=== PATIENT | female | born 1960 | race Caucasian/White ===

== ENCOUNTER 2016-10-13 15:19 | Emergency (ER) | payer OTHER ==
[~2016-10-13] VITALS: Ht 154.9 cm; Wt 108.9 kg
[~2016-10-13 15:19] MED LIST: ALENDRONATE SOD70 M1 PO; AMLODIPINE BES2.5 MG PO; AMOXICILLIN500 MG PO; ARTHROTEC 75 751 ECT PO; ASPIRIN81 M1 PO; ATARAX25 MG PO; BENICAR40 MG PO; CILOXAN 5 ML5 M1 OP; CRESTOR10 MG PO; CYMBALTA30 MG PO; DEXILANT60 M1 PO; DIOVAN320 MG PO; ELIMITE 5%60 GM PO; FLEXERIL5 MG PO; HYDROCODONE BIT1 T11 PO; JANUVIA; JANUVIA100 MG PO; LOSARTAN POTAS100 MG PO; MEDROL DOSEPAK4 MG PO; METFORMIN1000 MG PO; MOBIC15 MG PO; MOTRIN800 MG PO; NEURONTIN300 MG PO; NORCO 325 MG-51 TAB PO; OSCAL/D,OYSTER250 MG PO; PANTOPRAZOLE40 MG PO; PERCOCET 325 MG1 TA2 PO; PERCOCET 325 MG1 TA7 PO; PROTONIX40 MG PO; ROBAXIN500 MG PO; ROBAXIN750 MG PO; VICODIN 500 MG-1 TAB PO; VITAMIN D3400 IU PO; ZANAFLEX2 M1 PO; ZITHROMAX250 MG PO
[2016-10-13 15:43] VITALS: BP 148/89
[2016-10-13] MEDS ORDERED: VITAMIN D50000 I3 PO (15:44)
[2016-10-13] MEDS ORDERED: ANORO ELLIPTA1 POW IH (15:47)
[2016-10-13] MEDS ORDERED: NAPROXEN500 MG PO (15:47)
[2016-10-13] MEDS ORDERED: NOVAPLUS V0.09 MG/Ac IH (15:47)
[2016-10-13] MEDS ORDERED: METFOMIN HYDRO850 MG PO (15:48)
[2016-10-13] MEDS ORDERED: PREDNISONE50 MG PO (17:49)
[2016-10-13] MEDS ORDERED: Orphenadrine C100 MG PO (17:49)
== END 2016-10-13 18:03 | disposition home or self-care (01) ==
LOC: ED 15:19
DX: M54.2 Cervicalgia (principal); M54.5 Low back pain; Z88.6 Allergy status to analgesic agent; Z88.8 Allergy status to other drugs, medicaments and biological substances; Z79.82 Long term (current) use of aspirin; Z79.899 Other long term (current) drug therapy

== ENCOUNTER 2017-02-28 17:01 | Emergency (ER) | payer OTHER ==
[~2017-02-28] VITALS: Ht 154.9 cm; Wt 106.1 kg
[~2017-02-28 17:01] MED LIST changes: +ANORO ELLIPTA1 POW IH; +METFOMIN HYDRO850 MG PO; +NAPROXEN500 MG PO; +NOVAPLUS V0.09 MG/Ac IH; +Orphenadrine C100 MG PO; +PREDNISONE50 MG PO; +VITAMIN D50000 I3 PO
[2017-02-28 17:19] VITALS: BP 145/90
[2017-02-28] MEDS ORDERED: HYDROCODONE BIT1 T11 PO (18:48)
== END 2017-02-28 18:55 | disposition home or self-care (01) ==
LOC: ED 17:01
DX: S46.912A Strain of unspecified muscle, fascia and tendon at shoulder and upper arm level, left arm, initial encounter (principal); Z98.51 Tubal ligation status; Z79.899 Other long term (current) drug therapy; Z79.82 Long term (current) use of aspirin; Z88.8 Allergy status to other drugs, medicaments and biological substances; Z88.6 Allergy status to analgesic agent; X58.XXXA Exposure to other specified factors, initial encounter; Y93.89 Activity, other specified; Y92.89 Other specified places as the place of occurrence of the external cause; Y99.9 Unspecified external cause status

== ENCOUNTER → 2017-03-15 | Outpatient (CLI) | payer OTHER ==
[2017-03-15 11:02] LABS: BASO % 0.4 % (0.0-1.0); EOS # 0.2 10*3/uL (0.0-0.4); EOS % 2.1 % (1.0-4.0); HEMATOCRIT 35.3 % (37.0-47.0); HEMOGLOBIN 11.5 g/dl (12.0-16.0); LYMPH # 2.8 10*3/uL (1.3-4.4); LYMPH % 35.2 % (27.0-41.0); MEAN CELL VOLUME 83.1 fl (81.0-99.0); MEAN CORPUSCULAR HGB 27.1 pg (27.0-31.0); MEAN CORPUSCULAR HGB CONC 32.6 g/dl (33.0-37.0); MEAN PLATELET VOLUME 11.5 fl (9.6-12.3); MONO # 0.6 10*3/uL (0.1-1.0); MONO % 7.7 % (3.0-9.0); NEUT # 4.4 10*3/uL (2.3-7.9); NEUT % 54.5 % (47.0-73.0); PLATELET COUNT AUTOMATED 341 10*3/uL (130-400); RED BLOOD COUNT 4.25 10*6/uL (4.10-5.10)
[2017-03-15 11:33] LABS: ALBUMIN 3.6 gm/dl (3.1-4.5); BILIRUBIN, TOTAL 0.4 mg/dl (0.2-1.0); POTASSIUM 3.9 mmol/L (3.5-5.1); TOTAL PROTEIN 7.6 gm/dL (6.4-8.2)
[2017-03-15 11:41] LABS: THYROID STIM HORMONE (HS) 2.93 uIU/ml (0.358-4.75)
== END | disposition home or self-care (01) ==
LOC: LAB 10:33
PROVIDERS: Internal Medicine
DX: E11.42 Type 2 diabetes mellitus with diabetic polyneuropathy (principal); E78.2 Mixed hyperlipidemia; E55.9 Vitamin D deficiency, unspecified

== ENCOUNTER → 2017-03-30 | Outpatient (CLI) | payer OTHER | END | disposition home or self-care (01) | LOC: MAMMO 00:26 | DX: Z12.31 Encounter for screening mammogram for malignant neoplasm of breast (principal); M81.8 Other osteoporosis without current pathological fracture; Z78.0 Asymptomatic menopausal state; R29.890 Loss of height; E83.51 Hypocalcemia ==

== ENCOUNTER → 2017-04-18 | Outpatient (CLI) | payer OTHER | END | disposition home or self-care (01) | LOC: RAD 11:39 | DX: M47.817 Spondylosis without myelopathy or radiculopathy, lumbosacral region (principal) ==

== ENCOUNTER → 2017-08-16 | Outpatient (CLI) | payer OTHER | END | disposition home or self-care (01) | LOC: RAD 01:58 → ORTHO 01:58 | DX: M77.31 Calcaneal spur, right foot (principal) ==

== ENCOUNTER → 2017-11-20 | Outpatient (CLI) | payer OTHER ==
[2017-11-20 11:12] LABS: BASO % 0.3 % (0.0-1.0); EOS # 0.2 10*3/uL (0.0-0.4); EOS % 2.2 % (1.0-4.0); HEMATOCRIT 36.7 % (37.0-47.0); LYMPH # 2.4 10*3/uL (1.3-4.4); LYMPH % 23.2 % (27.0-41.0); MEAN CELL VOLUME 81.7 fl (81.0-99.0); MEAN CORPUSCULAR HGB 26.7 pg (27.0-31.0); MEAN CORPUSCULAR HGB CONC 32.7 g/dl (33.0-37.0); MEAN PLATELET VOLUME 11.2 fl (9.6-12.3); MONO # 0.7 10*3/uL (0.1-1.0); MONO % 6.7 % (3.0-9.0); NEUT # 6.9 10*3/uL (2.3-7.9); NEUT % 67.3 % (47.0-73.0); PLATELET COUNT AUTOMATED 353 10*3/uL (130-400); RED BLOOD COUNT 4.49 10*6/uL (4.10-5.10); RED CELL DISTRI WIDTH 14.6 % (0-14.5); WHITE BLOOD COUNT 10.2 10*3/uL (4.8-10.8)
[2017-11-20 11:47] LABS: ALBUMIN 3.4 gm/dl (3.1-4.5); CREATININE 1.41 mg/dL (0.55-1.02); POTASSIUM 3.7 mmol/L (3.5-5.1)
[2017-11-20 11:56] LABS: THYROID STIM HORMONE (HS) 2.83 uIU/ml (0.358-4.75); TOTAL PROTEIN 7.8 gm/dL (6.4-8.2)
== END | disposition home or self-care (01) ==
LOC: LAB 10:37
PROVIDERS: Internal Medicine
DX: E11.42 Type 2 diabetes mellitus with diabetic polyneuropathy (principal); E55.9 Vitamin D deficiency, unspecified; E78.2 Mixed hyperlipidemia

== ENCOUNTER → 2018-01-16 | Outpatient (CLI) | payer OTHER | END | disposition home or self-care (01) | LOC: RAD 12:09 | DX: M25.512 Pain in left shoulder (principal) ==

== ENCOUNTER → 2018-02-15 | Outpatient (CLI) | payer OTHER | END | disposition home or self-care (01) | LOC: ORTHO 02:43 | DX: M50.323 Other cervical disc degeneration at C6-C7 level (principal); M47.812 Spondylosis without myelopathy or radiculopathy, cervical region ==

== ENCOUNTER → 2018-03-05 | Outpatient (CLI) | payer OTHER | END | disposition home or self-care (01) | LOC: MRI 10:00 | DX: M50.223 Other cervical disc displacement at C6-C7 level (principal); M47.892 Other spondylosis, cervical region ==

== ENCOUNTER 2018-06-20 11:14 | Emergency (ER) | payer OTHER ==
[~2018-06-20] VITALS: Ht 152.4 cm; Wt 111.1 kg
[2018-06-20 11:17] VITALS: BP 132/85
== END 2018-06-20 14:05 ==
LOC: ED 11:14
DX: S76.912A Strain of unspecified muscles, fascia and tendons at thigh level, left thigh, initial encounter (principal); I80.3 Phlebitis and thrombophlebitis of lower extremities, unspecified; Z88.6 Allergy status to analgesic agent; Z88.8 Allergy status to other drugs, medicaments and biological substances; Z79.82 Long term (current) use of aspirin; Z79.899 Other long term (current) drug therapy; Z79.84 Long term (current) use of oral hypoglycemic drugs; Z98.51 Tubal ligation status; X58.XXXA Exposure to other specified factors, initial encounter; Y93.89 Activity, other specified; Y92.89 Other specified places as the place of occurrence of the external cause; Y99.8 Other external cause status

== ENCOUNTER → 2018-06-20 | Outpatient (CLI) | payer OTHER ==
[2018-06-20 11:26] LABS: BASO % 0.3 % (0.0-1.0); EOS # 0.3 10*3/uL (0.0-0.4); EOS % 2.4 % (1.0-4.0); HEMATOCRIT 34.8 % (37.0-47.0); HEMOGLOBIN 11.3 g/dl (12.0-16.0); LYMPH # 2.9 10*3/uL (1.3-4.4); LYMPH % 27.2 % (27.0-41.0); MEAN CELL VOLUME 82.9 fl (81.0-99.0); MEAN CORPUSCULAR HGB 26.9 pg (27.0-31.0); MEAN CORPUSCULAR HGB CONC 32.5 g/dl (33.0-37.0); MEAN PLATELET VOLUME 12.1 fl (9.6-12.3); MONO # 0.8 10*3/uL (0.1-1.0); MONO % 7.2 % (3.0-9.0); NEUT # 6.6 10*3/uL (2.3-7.9); NEUT % 62.7 % (47.0-73.0); PLATELET COUNT AUTOMATED 304 10*3/uL (130-400); RED CELL DISTRI WIDTH 14.6 % (0-14.5); WHITE BLOOD COUNT 10.5 10*3/uL (4.8-10.8)
[2018-06-20 11:53] LABS: ALBUMIN 3.3 gm/dl (3.1-4.5); CREATININE 1.79 mg/dL (0.55-1.02); POTASSIUM 3.3 mmol/L (3.5-5.1); TOTAL PROTEIN 7.8 gm/dL (6.4-8.2)
[2018-06-20 11:59] LABS: THYROID STIM HORMONE (HS) 3.67 uIU/ml (0.358-4.75)
== END | disposition home or self-care (01) ==
LOC: LAB 10:46
PROVIDERS: Internal Medicine
DX: E11.42 Type 2 diabetes mellitus with diabetic polyneuropathy (principal); E55.9 Vitamin D deficiency, unspecified; E78.2 Mixed hyperlipidemia

== ENCOUNTER → 2018-09-05 | Outpatient (CLI) | payer OTHER ==
[2018-09-05 10:07] LABS: ACT PARTIAL THROMBO TIME 21.7 SECONDS (20.8-31.5); INTERNATIONAL NORM RATIO 0.9 (2.0-3.5)
[2018-09-05 10:10] LABS: ALBUMIN 3.1 gm/dl (3.1-4.5); CREATININE 1.67 mg/dL (0.55-1.02); PHOSPHOROUS 4.2 mg/dL (2.5-4.9); POTASSIUM 3.9 mmol/L (3.5-5.1)
[2018-09-05 10:27] LABS: BILIRUBIN NEGATIVE (NEGATIVE); BLOOD NEGATIVE (NEGATIVE); CLARITY CLOUDY (CLEAR); COLOR YELLOW (YELLOW); GLUCOSE NEGATIVE (NEGATIVE); KETONE NEGATIVE (NEGATIVE); LEUKO ESTERASE 1+ (NEGATIVE); NITRITE NEGATIVE (NEGATIVE); SPECIFIC GRAVITY >= 1.030 (1.005-1.030); UROBILINOGEN 0.2 E.U./dl (0.2-1.0)
[2018-09-05 10:37] LABS: EPITHELIAL CELLS TNTC
[2018-09-05 10:38] LABS: BACTERIA 2+; YEAST 3+
== END | disposition home or self-care (01) ==
LOC: EDSTATUS 08-29 10:00
PROVIDERS: Internal Medicine; Internal Medicine Nephrology
DX: S43.432A Superior glenoid labrum lesion of left shoulder, initial encounter (principal); X58.XXXA Exposure to other specified factors, initial encounter; Y93.89 Activity, other specified; Y92.89 Other specified places as the place of occurrence of the external cause; Y99.8 Other external cause status; M67.814 Other specified disorders of tendon, left shoulder; M41.9 Scoliosis, unspecified; I12.9 Hypertensive chronic kidney disease with stage 1 through stage 4 chronic kidney disease, or unspecified chronic kidney disease; E11.22 Type 2 diabetes mellitus with diabetic chronic kidney disease; N18.3 Chronic kidney disease, stage 3 (moderate); E11.42 Type 2 diabetes mellitus with diabetic polyneuropathy; Z98.51 Tubal ligation status; Z98.890 Other specified postprocedural states; Z79.899 Other long term (current) drug therapy

== ENCOUNTER 2019-03-26 13:13 | Emergency (ER) | payer OTHER ==
[~2019-03-26] VITALS: Ht 152.4 cm; Wt 112.9 kg
[2019-03-26 13:28] VITALS: BP 109/79
== END 2019-03-26 13:59 | disposition home or self-care (01) ==
LOC: ED 13:13
DX: H92.01 Otalgia, right ear (principal); G89.29 Other chronic pain; Z98.51 Tubal ligation status; Z79.899 Other long term (current) drug therapy; Z79.82 Long term (current) use of aspirin; Z88.6 Allergy status to analgesic agent; Z88.8 Allergy status to other drugs, medicaments and biological substances

== ENCOUNTER → 2019-04-15 | Outpatient (CLI) | payer OTHER | END | disposition home or self-care (01) | LOC: ORTHO 00:46 | DX: M25.512 Pain in left shoulder (principal) ==

== ENCOUNTER → 2019-07-12 | Outpatient (CLI) | payer OTHER | END | disposition home or self-care (01) | LOC: US 13:50 | DX: N28.1 Cyst of kidney, acquired (principal); N17.9 Acute kidney failure, unspecified ==

== ENCOUNTER → 2019-08-14 | Outpatient (CLI) | payer OTHER ==
[2019-08-14 13:37] LABS: BASO % 0.4 % (0.0-1.0); BILIRUBIN NEGATIVE (NEGATIVE); BLOOD NEGATIVE (NEGATIVE); CLARITY CLOUDY (CLEAR); COLOR YELLOW (YELLOW); EOS # 0.1 10*3/uL (0.0-0.4); EOS % 1.3 % (1.0-4.0); GLUCOSE 3+ (NEGATIVE); HEMATOCRIT 45.6 % (37.0-47.0); HEMOGLOBIN 14.7 g/dl (12.0-16.0); KETONE NEGATIVE (NEGATIVE); LEUKO ESTERASE NEGATIVE (NEGATIVE); MEAN CELL VOLUME 84.9 fl (81.0-99.0); MEAN CORPUSCULAR HGB 27.4 pg (27.0-31.0); MEAN CORPUSCULAR HGB CONC 32.2 g/dl (33.0-37.0); MEAN PLATELET VOLUME 12.3 fl (9.6-12.3); MONO # 0.6 10*3/uL (0.1-1.0); NEUT # 7.8 10*3/uL (2.3-7.9); NITRITE NEGATIVE (NEGATIVE); PH 5.5 (5.0-9.0); PLATELET COUNT AUTOMATED 302 10*3/uL (130-400); RED BLOOD COUNT 5.37 10*6/uL (4.10-5.10); RED CELL DISTRI WIDTH 15.6 % (0-14.5); UROBILINOGEN 0.2 E.U./dl (0.2-1.0); WHITE BLOOD COUNT 10.7 10*3/uL (4.8-10.8)
[2019-08-14 13:53] LABS: URINE CREATININE RANDOM 98.1 mg/dL
[2019-08-14 13:56] LABS: BACTERIA 2+; EPITHELIAL CELLS 31-40; WBC 0-2 wbc/hpf (0-5); YEAST 3+
[2019-08-14 14:11] LABS: ALBUMIN 3.4 gm/dl (3.1-4.5); POTASSIUM 3.2 mmol/L (3.5-5.1)
[2019-08-14 14:12] LABS: CREATININE 2.33 mg/dL (0.55-1.02); PHOSPHOROUS 2.5 mg/dL (2.5-4.9)
[2019-08-14 14:14] LABS: VITAMIN D, 25-HYDROXY 69.4 ng/mL (30-100)
[2019-08-14 14:15] LABS: FERRITIN 39.4 ng/mL (10.0-291.0); PTH INTACT 57.4 pg/mL (18.5-88.0)
== END | disposition home or self-care (01) ==
LOC: LAB 12:33
PROVIDERS: Internal Medicine Nephrology
DX: N25.81 Secondary hyperparathyroidism of renal origin (principal); E11.22 Type 2 diabetes mellitus with diabetic chronic kidney disease; D63.1 Anemia in chronic kidney disease; N18.3 Chronic kidney disease, stage 3 (moderate); Z79.899 Other long term (current) drug therapy

== ENCOUNTER → 2019-09-20 | Outpatient (CLI) | payer OTHER ==
[2019-09-20 16:18] LABS: ALBUMIN 3.1 gm/dl (3.1-4.5); CREATININE 1.92 mg/dL (0.55-1.02); PHOSPHOROUS 2.4 mg/dL (2.5-4.9); POTASSIUM 3.2 mmol/L (3.5-5.1)
[2019-09-20 18:01] LABS: BILIRUBIN NEGATIVE (NEGATIVE); BLOOD NEGATIVE (NEGATIVE); CLARITY CLEAR (CLEAR); COLOR YELLOW (YELLOW); GLUCOSE 3+ (NEGATIVE); KETONE NEGATIVE (NEGATIVE); LEUKO ESTERASE NEGATIVE (NEGATIVE); NITRITE NEGATIVE (NEGATIVE); UROBILINOGEN 0.2 E.U./dl (0.2-1.0)
[2019-09-20 18:09] LABS: BACTERIA 1+; URINE CREATININE RANDOM 69.7 mg/dL; WBC 0-2 wbc/hpf (0-5)
== END | disposition home or self-care (01) ==
LOC: LAB 14:22
PROVIDERS: Internal Medicine Nephrology
DX: N17.9 Acute kidney failure, unspecified (principal); Z79.899 Other long term (current) drug therapy

== ENCOUNTER → 2019-10-30 | Outpatient (CLI) | payer OTHER ==
[~2019-10-30] MED LIST changes: +AVPAK AZITHROM250 M1 PO; +FISH OIL 500 M1 EACH PO; +GLIPIZIDE10 M1 PO; +IRON325 M3 PO; +JARDIANCE10 MG PO; +JARDIANCE25 MG PO; +LOSARTAN-HCTZ1 EACH PO; +OMNICEF300 MG PO; +SIMVASTATIN5 MG PO; +TAMIFLU30 MG PO; +TRULICITY1.5 MG/0.5 SC; +VITAMIN D22000 UNIT PO
[2019-10-30 14:48] LABS: BASO # 0.1 10*3/uL (0.0-0.1); BASO % 0.4 % (0.0-1.0); EOS # 0.2 10*3/uL (0.0-0.4); HEMATOCRIT 47.2 % (37.0-47.0); HEMOGLOBIN 15.5 g/dl (12.0-16.0); LYMPH % 25.4 % (27.0-41.0); MEAN CELL VOLUME 82.2 fl (81.0-99.0); MEAN CORPUSCULAR HGB CONC 32.8 g/dl (33.0-37.0); MEAN PLATELET VOLUME 11.6 fl (9.6-12.3); MONO # 0.8 10*3/uL (0.1-1.0); MONO % 6.9 % (3.0-9.0); NEUT # 7.8 10*3/uL (2.3-7.9); PLATELET COUNT AUTOMATED 291 10*3/uL (130-400); RED BLOOD COUNT 5.74 10*6/uL (4.10-5.10)
[2019-10-30 14:57] LABS: URINE CREATININE RANDOM 83.9 mg/dL
[2019-10-30 15:15] LABS: ALBUMIN 3.4 gm/dl (3.1-4.5); CREATININE 1.83 mg/dL (0.55-1.02); POTASSIUM 3.6 mmol/L (3.5-5.1)
[2019-10-30 15:25] LABS: CLARITY CLEAR (CLEAR); COLOR YELLOW (YELLOW); GLUCOSE 3+ (NEGATIVE); SPECIFIC GRAVITY 1.015 (1.005-1.030)
[2019-10-30 15:26] LABS: BILIRUBIN NEGATIVE (NEGATIVE); BLOOD NEGATIVE (NEGATIVE); FERRITIN 73.5 ng/mL (10.0-291.0); KETONE NEGATIVE (NEGATIVE); LEUKO ESTERASE NEGATIVE (NEGATIVE); NITRITE NEGATIVE (NEGATIVE); PH 6.5 (5.0-9.0); PTH INTACT 48.6 pg/mL (18.5-88.0); UROBILINOGEN 0.2 E.U./dl (0.2-1.0); VITAMIN D, 25-HYDROXY 59.4 ng/mL (30-100)
[2019-10-30 15:27] LABS: YEAST 2+
[2019-10-30 15:28] LABS: BACTERIA TRACE
== END | disposition home or self-care (01) ==
LOC: LAB 14:22
PROVIDERS: Internal Medicine Nephrology
DX: E11.22 Type 2 diabetes mellitus with diabetic chronic kidney disease (principal); N18.3 Chronic kidney disease, stage 3 (moderate); D63.1 Anemia in chronic kidney disease; N25.81 Secondary hyperparathyroidism of renal origin; Z79.899 Other long term (current) drug therapy

== ENCOUNTER 2019-11-04 13:34 | Inpatient (IN) | payer OTHER ==
[~2019-11-04] VITALS: Ht 152.4 cm; Wt 112.2 kg
[~2019-11-04 13:34] MED LIST changes: -AVPAK AZITHROM250 M1 PO; -FISH OIL 500 M1 EACH PO; -GLIPIZIDE10 M1 PO; -IRON325 M3 PO; -JARDIANCE10 MG PO; -JARDIANCE25 MG PO; -LOSARTAN-HCTZ1 EACH PO; -OMNICEF300 MG PO; -SIMVASTATIN5 MG PO; -TAMIFLU30 MG PO; -TRULICITY1.5 MG/0.5 SC; -VITAMIN D22000 UNIT PO
[2019-11-04 13:47] VITALS: BP 90/45
[2019-11-04 16:00] LABS: BASO % 0.3 % (0.0-1.0); EOS # 0.5 10*3/uL (0.0-0.4); EOS % 5.9 % (1.0-4.0); HEMATOCRIT 48.9 % (37.0-47.0); HEMOGLOBIN 15.9 g/dl (12.0-16.0); LYMPH # 1.2 10*3/uL (1.3-4.4); MEAN CELL VOLUME 83.7 fl (81.0-99.0); MEAN CORPUSCULAR HGB 27.2 pg (27.0-31.0); MEAN CORPUSCULAR HGB CONC 32.5 g/dl (33.0-37.0); MONO % 11.1 % (3.0-9.0); NEUT # 5.9 10*3/uL (2.3-7.9); NEUT % 68.5 % (47.0-73.0); PLATELET COUNT AUTOMATED 239 10*3/uL (130-400); RED BLOOD COUNT 5.84 10*6/uL (4.10-5.10); RED CELL DISTRI WIDTH 14.6 % (0-14.5); WHITE BLOOD COUNT 8.6 10*3/uL (4.8-10.8)
[2019-11-04 16:15] LABS: ALBUMIN 3.2 gm/dl (3.1-4.5); CREATININE 2.72 mg/dL (0.55-1.02); POTASSIUM 3.5 mmol/L (3.5-5.1)
[2019-11-04 17:45] VITALS: BP 103/57
[2019-11-04 18:51] VITALS: BP 101/49
--- NOTE | 2019-11-04 18:51 | NUR ---
Time: 1850 A 59 year old FEMALE admitted to 5E under services of ORIN PEDRAZA DO, Pt. arrived via wheel chair from ER. Chief complaint: INFLUENZA. KRISH RANDLE
[2019-11-04] MEDS ORDERED: TRULICITY1.5 MG/0.5 SC (18:58)
[2019-11-04] MEDS ORDERED: GLIPIZIDE10 M1 PO (19:00)
[2019-11-04] MEDS ORDERED: JARDIANCE25 MG PO (19:00)
[2019-11-04] MEDS ORDERED: JANUVIA100 MG PO (19:00)
[2019-11-04] MEDS ORDERED: SIMVASTATIN5 MG PO (19:01)
[2019-11-04] MEDS ORDERED: VITAMIN D22000 UNIT PO (19:01)
[2019-11-04] MEDS ORDERED: LOSARTAN-HCTZ1 EACH PO (19:02)
[2019-11-04] MEDS ORDERED: IRON325 M3 PO (19:02)
[2019-11-04] MEDS ORDERED: FISH OIL 500 M1 EACH PO (19:02)
--- NOTE | 2019-11-04 20:39 | NUR ---
NOTIFIED DR ROBERTS'S ANSWERING SERVICE OF CONSULT.
--- NOTE | 2019-11-04 20:42 | NUR ---
SPOKE WITH DR ROBERTS. HE ORDERED THE PATIENT TO HAVE ANOTHER BOLUS OF NORMAL SALINE 1000 ML AND THEN TO PUT THE PATIENT BACK ON THE NSS AT 100 ML/HR AFTER THE BOLUS.
--- NOTE | 2019-11-04 23:10 | NUR ---
PER DR KNUTSON, CONTINUE PATIENT'S GABAPENTIN SO SHE CAN HAVE HER BEDTIME DOSE. PATIENT ALSO REQUESTING NORCO. NOTIFIED DR KNUTSON AND HE STATED NOT TO GIVE IT TO THE PATIENT BECAUSE HE DOES NOT WANT HER BLOOD PRESSURE DROPPING. CURRENT BLOOD PRESSURE 105/62. WILL CONTINUE PATIENT'S GABAPENTIN.
[2019-11-05] VITALS: BP 117/58
--- NOTE | 2019-11-05 00:30 | NUR ---
NOTIFIED DR KNUTSON TWICE OF COMPLETED MED REC. HE STATED HE WOULD GET TO IT WHEN HE CAN BECAUSE HE HAD MULTIPLE ADMISSIONS TONIGHT.
--- NOTE | 2019-11-05 02:59 | NUR ---
Patient resting quietly with no c/o discomfort. Respirations easy and regular. No overt distress. SASCHA JOHNSTON
--- NOTE | 2019-11-05 05:59 | NUR ---
PATIENT'S BLOOD SUGAR 289. PATIENT REFUSING INSULIN COVERAGE. SHE STATED SHE USUALLY DOES NOT TAKE INSULIN AND ONLY TAKES AN ORAL ANTIDIABETIC MEDICATION. I EXPLAINED THE RATIONALE FOR INSULIN TWICE. PATIENT STILL REFUSING INSULIN. SHE STATED SHE WANTS TO WAIT UNTIL SHE CAN TAKE HER ORAL ANTIDIABETIC MED.
[2019-11-05 06:46] LABS: EOS # 0.1 10*3/uL (0.0-0.4); EOS % 1.7 % (1.0-4.0); HEMATOCRIT 41.9 % (37.0-47.0); HEMOGLOBIN 13.6 g/dl (12.0-16.0); LYMPH # 0.8 10*3/uL (1.3-4.4); LYMPH % 15.6 % (27.0-41.0); MEAN CELL VOLUME 82.6 fl (81.0-99.0); MEAN CORPUSCULAR HGB 26.8 pg (27.0-31.0); MEAN CORPUSCULAR HGB CONC 32.5 g/dl (33.0-37.0); MEAN PLATELET VOLUME 12.1 fl (9.6-12.3); MONO # 0.2 10*3/uL (0.1-1.0); MONO % 3.7 % (3.0-9.0); NEUT # 4.2 10*3/uL (2.3-7.9); NEUT % 78.8 % (47.0-73.0); PLATELET COUNT AUTOMATED 201 10*3/uL (130-400); RED BLOOD COUNT 5.07 10*6/uL (4.10-5.10); RED CELL DISTRI WIDTH 14.5 % (0-14.5); WHITE BLOOD COUNT 5.4 10*3/uL (4.8-10.8)
[2019-11-05 07:07] LABS: CREATININE 2.57 mg/dL (0.55-1.02); PHOSPHOROUS 3.8 mg/dL (2.5-4.9); POTASSIUM 3.3 mmol/L (3.5-5.1)
[2019-11-05 07:15] LABS: THYROID STIM HORMONE (HS) 0.663 uIU/ml (0.358-4.75)
[2019-11-05 07:26] LABS: VITAMIN D, 25-HYDROXY 81.9 ng/mL (30-100)
[2019-11-05 08:00] VITALS: BP 118/64
--- NOTE | 2019-11-05 09:30 | NUR ---
ASSESSMENT COMPLETE. PT STATES FEELS "BETTER" THAN YESTERDAY. PT REFUSE LOVENOX SHOT, EXPLAINED MEDICATION AND IMPORTANCE.
[2019-11-05] MEDS ORDERED: JARDIANCE10 MG PO (09:32)
[2019-11-05 12:00] VITALS: BP 122/88
--- NOTE | 2019-11-05 12:12 | NUR ---
Spine Surgeon in to talk to patient. Patient states lives at HOME with BOYFRIEND. There are NO steps in the home. Physician: Saundra ZULUAGA Pharmacy: [facility] Home health services: NONE Patient's level of ADLs: INDEPENDENT Patient has working utilities: YES DME: NONE Follow-up physician's appointment after d/c: WILL BE MADE BY HOSPITALIST NURSE DIRECTOR ON DISCHARGE Does patient want to access PORTAL?: NO Discharge plan PT LIVES AT HOME WITH HER BOYFRIEND AND IS INDEPENEDENT IN HER CARE. DENIES SHE WILL HAVE NEEDS ON DISCHARGE. PLANS TO RETURN HOME ON DISCHARGE. BOYFRIEND WILL TRANSPORT HER HOME. WILL CONTINUE TO FOLLOW.. JULIA AVILA
[2019-11-05 15:42] VITALS: BP 100/60
--- NOTE | 2019-11-05 15:45 | NUR ---
DR. BE AWARE LOW POTASSIUM AND AWARE BLOOD PRESSURE MANUAL 100/60 AT THIS TIME.
[2019-11-05 16:00] VITALS: BP 100/60; BP 89/55
--- NOTE | 2019-11-05 17:56 | NUR ---
PER DR ROBERTS GIVE 1800 DOSE OF GABAPENTIN WITH 2200 MEDICATIONS DUE TO BLOOD PRESSURE
[2019-11-05 20:00] VITALS: BP 99/67
--- NOTE | 2019-11-05 21:05 | NUR ---
SPOKE WITH DR ROBERTS REGARDING ORDERS GIVEN TO [facility] ABOUT HOLDING THE PATIENT'S GABAPENTIN DUE TO LOW BLOOD PRESSURES. DR ROBERTS STATED HE HAD WANTED HER AFTERNOON DOSE TO BE HELD DUE TO THE PATIENT'S KIDNEY FUNCTION/LABS. DR ROBERTS REQUESTED PATIENT'S MOST RECENT BLOOD PRESSURE WHICH WAS 99/67 AND HE GAVE ORDERS TO GIVE THE PATIENT A 500ML BAG OF LACTATED RINGERS TO BE INFUSED OVER 2 HOURS AND TO HOLD THE PATIENT'S GABAPENTIN UNTIL TOMORROW MORNING.
[2019-11-06] VITALS: BP 112/66
[2019-11-06 06:24] VITALS: BP 116/72
[2019-11-06 06:27] LABS: BASO % 0.3 % (0.0-1.0); EOS % 0.4 % (1.0-4.0); HEMATOCRIT 40.9 % (37.0-47.0); HEMOGLOBIN 13.2 g/dl (12.0-16.0); LYMPH # 2.5 10*3/uL (1.3-4.4); LYMPH % 35.2 % (27.0-41.0); MEAN CELL VOLUME 84.7 fl (81.0-99.0); MEAN CORPUSCULAR HGB 27.3 pg (27.0-31.0); MEAN CORPUSCULAR HGB CONC 32.3 g/dl (33.0-37.0); MEAN PLATELET VOLUME 11.9 fl (9.6-12.3); MONO # 0.6 10*3/uL (0.1-1.0); MONO % 8.8 % (3.0-9.0); NEUT # 3.8 10*3/uL (2.3-7.9); NEUT % 54.9 % (47.0-73.0); PLATELET COUNT AUTOMATED 177 10*3/uL (130-400); RED BLOOD COUNT 4.83 10*6/uL (4.10-5.10); RED CELL DISTRI WIDTH 14.5 % (0-14.5)
[2019-11-06 06:40] LABS: ALBUMIN 2.5 gm/dl (3.1-4.5); CREATININE 1.97 mg/dL (0.55-1.02); POTASSIUM 3.5 mmol/L (3.5-5.1); TOTAL PROTEIN 6.4 gm/dL (6.4-8.2)
[2019-11-06 08:00] VITALS: BP 114/62
[2019-11-06 12:00] VITALS: BP 116/68; BP 120/62
--- NOTE | 2019-11-06 15:13 | NUR ---
PT CONTINUES TO DENY NEEDS AT HOME ON DISCHARGE. WILL CONTINUE TO FOLLOW.
[2019-11-06 16:00] VITALS: BP 100/69
[2019-11-06 20:00] VITALS: BP 121/70
--- NOTE | 2019-11-06 23:14 | NUR ---
24hr chart check completed.
[2019-11-07] VITALS: BP 95/56
[2019-11-07 08:00] VITALS: BP 122/72
[2019-11-07 08:49] LABS: CREATININE 1.49 mg/dL (0.55-1.02); POTASSIUM 3.5 mmol/L (3.5-5.1)
--- NOTE | 2019-11-07 11:51 | NUR ---
PT STATES SHE WILL RETURN HOME ON DISCHARGE AND HAVE NO NEEDS.
[2019-11-07 12:00] VITALS: BP 121/70
[2019-11-07] MEDS ORDERED: TAMIFLU30 MG PO (12:16)
[2019-11-07] MEDS ORDERED: AVPAK AZITHROM250 M1 PO (12:16)
[2019-11-07] MEDS ORDERED: OMNICEF300 MG PO (12:16)
--- NOTE | 2019-11-07 14:31 | NUR ---
Discharge instructions reviewed with patient/family. Patient receptive and verbalizes understanding. Follow-up care arranged. Written instructions given to patient/family. SHAAN RAMSAY
== END 2019-11-07 14:32 | disposition home or self-care (01) | DRG 152 ==
LOC: ED 13:34 → 5E 17:56 → EDHOLD 17:56 → 5E 18:34
PROVIDERS: Internal Medicine; Physician Assistant; ADMIT Internal Medicine
DX: J11.1 Influenza due to unidentified influenza virus with other respiratory manifestations (principal); N17.0 Acute kidney failure with tubular necrosis; E44.1 Mild protein-calorie malnutrition; Z68.42 Body mass index [BMI] 45.0-49.9, adult; E11.65 Type 2 diabetes mellitus with hyperglycemia; E11.22 Type 2 diabetes mellitus with diabetic chronic kidney disease; N18.3 Chronic kidney disease, stage 3 (moderate); E87.6 Hypokalemia; G89.29 Other chronic pain; M54.9 Dorsalgia, unspecified; Z98.51 Tubal ligation status; Z88.6 Allergy status to analgesic agent; Z88.8 Allergy status to other drugs, medicaments and biological substances; Z79.82 Long term (current) use of aspirin; Z79.899 Other long term (current) drug therapy

== ENCOUNTER → 2020-02-20 | Outpatient (CLI) | payer OTHER ==
[~2020-02-20] MED LIST changes: +AVPAK AZITHROM250 M1 PO; +FISH OIL 500 M1 EACH PO; +GLIPIZIDE10 M1 PO; +IRON325 M3 PO; +JARDIANCE10 MG PO; +JARDIANCE25 MG PO; +LOSARTAN-HCTZ1 EACH PO; +OMNICEF300 MG PO; +SIMVASTATIN5 MG PO; +TAMIFLU30 MG PO; +TRULICITY1.5 MG/0.5 SC; +VITAMIN D22000 UNIT PO
== END | disposition home or self-care (01) ==
LOC: MAMMO 10:28
DX: Z12.31 Encounter for screening mammogram for malignant neoplasm of breast (principal)

== ENCOUNTER 2020-09-16 14:37 | Emergency (ER) | payer OTHER ==
[~2020-09-16] VITALS: Ht 152.4 cm; Wt 113.4 kg
[2020-09-16 14:50] VITALS: BP 86/62
[2020-09-16 15:36] LABS: HEMATOCRIT 42.5 % (37.0-47.0); MEAN CORPUSCULAR HGB 28.3 pg (27.0-31.0); MEAN CORPUSCULAR HGB CONC 33.6 g/dl (33.0-37.0); MEAN PLATELET VOLUME 12.3 fl (9.6-12.3); PLATELET COUNT AUTOMATED 212 10*3/uL (130-400); RED BLOOD COUNT 5.06 10*6/uL (4.10-5.10); RED CELL DISTRI WIDTH 13.1 % (0-14.5); WHITE BLOOD COUNT 6.8 10*3/uL (4.8-10.8)
[2020-09-16 15:48] LABS: ACT PARTIAL THROMBO TIME 26.2 SECONDS (20.0-32.1)
[2020-09-16 15:52] LABS: ALBUMIN 2.8 gm/dl (3.1-4.5); ALKALINE PHOSPHATASE 72 U/L (45-117); BUN 34 mg/dl (7-24); CHLORIDE 102 mmol/L (98-107); CREATININE 2.27 mg/dL (0.55-1.02); LIPASE 158 U/L (73-393); POTASSIUM 3.1 mmol/L (3.5-5.1); SGOT/AST 24 IU/L (3-35); SGPT/ALT 26 U/L (12-78); SODIUM 136 mmol/L (136-145); TOTAL PROTEIN 7.5 gm/dL (6.4-8.2)
[2020-09-16 15:53] LABS: TROPONIN I < 0.015 ng/ml (<0.045)
[2020-09-16 15:56] LABS: ATYPICAL LYMPHS 2 % (0-0); TOTAL CELLS COUNTED 100 #CELLS
[2020-09-16 15:57] LABS: PLATELET SUFFICIENCY NORMAL (NORMAL)
[2020-09-16] MEDS ORDERED: PROVENTIL HFA6.7 GM INH (16:46)
[2020-09-16] MEDS ORDERED: ZOFRAN4 MG PO (16:46)
[2020-09-16] MEDS ORDERED: PREDNISONE20 M1 PO (16:46)
== END 2020-09-16 16:53 | disposition home or self-care (01) ==
LOC: ED 14:37
PROVIDERS: Physician Assistant
DX: U07.1 COVID-19 (principal); Z88.8 Allergy status to other drugs, medicaments and biological substances; Z79.899 Other long term (current) drug therapy; Z79.82 Long term (current) use of aspirin

== ENCOUNTER 2021-01-12 11:27 | Emergency (ER) | payer OTHER ==
[~2021-01-12] VITALS: Wt 108.9 kg
[~2021-01-12 11:27] MED LIST changes: +PREDNISONE20 M1 PO; +PROVENTIL HFA6.7 GM INH; +ZOFRAN4 MG PO
[2021-01-12 11:36] VITALS: BP 105/65
[2021-01-12] MEDS ORDERED: PREDNISONE50 MG PO (12:08)
== END 2021-01-12 12:18 | disposition home or self-care (01) ==
LOC: ED 11:27
DX: L30.9 Dermatitis, unspecified (principal); Z88.8 Allergy status to other drugs, medicaments and biological substances; Z79.899 Other long term (current) drug therapy; Z79.82 Long term (current) use of aspirin; Z98.51 Tubal ligation status

== ENCOUNTER → 2021-03-30 | Outpatient (CLI) | payer MEDICARE, OTHER | END | disposition home or self-care (01) | LOC: MAMMO 03-08 11:00 | PROVIDERS: ATTEND Physician Assistant | DX: Z12.31 Encounter for screening mammogram for malignant neoplasm of breast (principal) ==

== ENCOUNTER → 2022-06-28 | Outpatient (CLI) | payer OTHER | END | disposition home or self-care (01) | LOC: MAMMO 15:00 | PROVIDERS: ATTEND Physician Assistant | DX: Z12.31 Encounter for screening mammogram for malignant neoplasm of breast (principal); N64.9 Disorder of breast, unspecified ==

== ENCOUNTER 2024-02-09 15:15 | Emergency (ER) | payer OTHER ==
[~2024-02-09] VITALS: Ht 154.9 cm; Wt 119.3 kg
[2024-02-09 17:15] VITALS: BP 117/65
== END 2024-02-09 17:27 | disposition home or self-care (01) ==
LOC: ED 15:15
DX: S80.02XA Contusion of left knee, initial encounter (principal); E11.22 Type 2 diabetes mellitus with diabetic chronic kidney disease; N18.30 Chronic kidney disease, stage 3 unspecified; F32.A Depression, unspecified; F41.9 Anxiety disorder, unspecified; E87.6 Hypokalemia; Z88.6 Allergy status to analgesic agent; Z88.8 Allergy status to other drugs, medicaments and biological substances; Z98.51 Tubal ligation status; Z98.890 Other specified postprocedural states; V89.2XXA Person injured in unspecified motor-vehicle accident, traffic, initial encounter; Y93.89 Activity, other specified; Y92.410 Unspecified street and highway as the place of occurrence of the external cause; Y99.8 Other external cause status

== ENCOUNTER 2024-02-16 18:25 | Emergency (ER) | payer OTHER ==
[~2024-02-16] VITALS: Wt 119.3 kg
[2024-02-16 18:26] VITALS: BP 128/72
[2024-02-16 19:04] LABS: BASO % 0.2 % (0.0-1.0); EOS % 0.1 % (1.0-4.0); HEMATOCRIT 45.3 % (37.0-47.0); LYMPH # 1.4 10*3/uL (1.3-4.4); LYMPH % 9.2 % (27.0-41.0); MEAN CELL VOLUME 83.4 fl (81.0-99.0); MEAN CORPUSCULAR HGB 28.7 pg (27.0-31.0); MEAN CORPUSCULAR HGB CONC 34.4 g/dl (33.0-37.0); MONO # 1.1 10*3/uL (0.1-1.0); MONO % 7.7 % (3.0-9.0); NEUT # 12.1 10*3/uL (2.3-7.9); NEUT % 82.3 % (47.0-73.0); PLATELET COUNT AUTOMATED 268 10*3/uL (130-400); RED BLOOD COUNT 5.43 10*6/uL (4.10-5.10); WHITE BLOOD COUNT 14.7 10*3/uL (4.8-10.8)
[2024-02-16 19:17] LABS: ACT PARTIAL THROMBO TIME 23.5 SECONDS (20.0-32.1)
[2024-02-16 19:27] LABS: POTASSIUM 3.5 mmol/L (3.4-5.1); TOTAL PROTEIN 7.9 gm/dL (6.0-8.0)
[2024-02-16] MEDS ORDERED: VISTARIL25 MG PO (21:52)
[2024-02-16] MEDS ORDERED: hydrOXYzine pamoate 25 MG CAP PO ONE (22:10)
== END 2024-02-16 21:55 | disposition home or self-care (01) ==
LOC: ED 18:25
PROVIDERS: Nurse Practitioner
DX: F41.9 Anxiety disorder, unspecified (principal); E11.9 Type 2 diabetes mellitus without complications; F32.A Depression, unspecified; Z88.6 Allergy status to analgesic agent; Z88.8 Allergy status to other drugs, medicaments and biological substances; Z98.51 Tubal ligation status; Z98.890 Other specified postprocedural states